=== PATIENT | female | born 1985 | race Caucasian/White ===

== ENCOUNTER 2016-11-11 02:43 | Inpatient (IN) ==
[~2016-11-11 02:43] MED LIST: Famotidine 20 MG/2 ML VIAL IVP PRN; Metoclopramide 10 MG/2 ML VIAL IVP PRN; Naloxone 0.4 MG/ML INJ IVP PRN
--- NOTE | 2016-11-11 02:43 | OB/GYN History & Physical ---
Date of Encounter: 11/11/16 Time of Encounter: 02:39 Assessment and Plan (1) Spontaneous onset of labor Current visit: Yes Status: Acute labor orders placed, patient does not want epidural, ok for nubain, allow spontaneous labor, will AROM soon, anticipate History of Present Illness HPI: Ms. Henry is a 31 year old female @ 37+2 weeks who presents to L and D in labor 3cm-5cm, no LOF, VB, regular ctxs, GBS neg. Past Med Surg Social Fam HX - Past Medical History Medical history: no medical history Psychiatric history: no psych history - Past Surgical History Surgical History: no surgical history - Social History Smoking Status: Never smoker Smokeless Tobacco Status: No Alcohol use: none Drug use: none - Family History Paternal Grandmother Hx Family Cancer: Yes (ovarian) Obstetrical History - Pregnancies : 2 Para: 1 Term: 1 Livin Medications and Allergies Ferrous Sulfate 324 mg PO DAILY 07/03/15 [History] Dha 1 tab PO DAILY 07/03/15 [History] Allergies No Known Allergies Allergy (Verified 07/03/15 01:58) Review of System OB All systems PM: reviewed and no additional remarkable complaints except as stated Exam - Constitutional Constitutional: well developed - HEENT HEENT: PERRL - Neck Neck exam: normal inspection - Lungs Respiratory exam: CTAB - Cardiovascular Cardiovascular exam: RRR - Abdomen Abdomen: Present: gravid - Extremities Extremities exam: warm - Cervix Dilation: 3 Results All other labs normal. - VTE Reasons for not Prescribing Prophylaxis: Treatment not Indicated - Low risk for VTE
[2016-11-11] MEDS ORDERED: Ringers Solution, Lactated 1,000 ML IVC SCH (02:45)
[2016-11-11 02:55] LABS: Basophils # 0.1 K/mcL (0.0-0.2); Basophils % 0.4 %; Eosinophils # 0.2 K/mcL (0.0-0.6); Eosinophils % 1.2 %; Hematocrit 36.4 % (35.3-44.9); Hemoglobin 11.5 g/dL (11.5-15.4); Immature Granulocytes % 0.6 % (0-4); Immature Platelets 2.1 % (1.1-6.1); Lymphocytes # 2.3 K/mcL (0.6-4.6); Lymphocytes % 19.1 %; Mean Corpuscular HGB Conc 31.6 g/dL (31.6-35.5); Mean Corpuscular Hemoglobin 27.5 pg (28.0-33.3); Mean Corpuscular Volume 87.1 fL (83.0-100.0); Mean Platelet Volume 9.5 fL (9.4-12.4); Monocytes # 0.8 K/mcL (0.0-1.3); Monocytes % 6.9 %; Neutrophils # 8.8 K/mcL (1.6-8.9); Platelet Count 271 K/mcL (140-400); Red Blood Count 4.18 M/mcL (3.82-4.97); Segmented Neutrophils % 71.8 %
[2016-11-11] MEDS ORDERED: *HR* Nalbuphine 20 MG/ML AMPUL IVP PRN (03:27)
[2016-11-11] MEDS ORDERED: *HR* Nalbuphine 20 MG/ML AMPUL ONE (03:36)
--- NOTE | 2016-11-11 04:26 | OB Labor Progress Note ---
Date of Encounter: 11/11/16 Time of Encounter: 04:21 Labor Progress Note - Subjective Subjective: patient continues to make good progress with her ctxs - Vital Signs Vital Signs: VSS - Cervix Cervix: 6cm - Heart Tones Heart Tones: 135/mod gene/+accels, no decels - Sigel Sigel: Q2-4 - Plan Plan: cont labor progress
--- NOTE | 2016-11-11 06:26 | OB Labor Progress Note ---
Date of Encounter: 11/11/16 Time of Encounter: 06:24 Labor Progress Note - Plan Plan: Patient now 8cm, continue monitoring strip, FHT CAT 1, anticipate
[2016-11-11] MEDS ORDERED: *HR* Oxytocin 10 UNIT/ML VIAL IM ONE (08:33)
--- NOTE | 2016-11-11 09:08 | OB/GYN Procedure Note ---
Delivery - Delivery Date: 11/11/16 Provider: Padilla Fisher Intrapartum events: none Delivery induction: none Estimated Blood Loss: 150 - (s) Infant A Infant Delivery Date: 11/11/16 Delivery Time: 08:46 Presentation: vertex Position: EDDIE Gender: Male Viability: Viable Weight Gram: 3.2 kg at 5 mins: 9 at 10 mins: 9 Shoulder Dystocia: not encountered Specimens collected: cord blood Placenta: spontaneous Cord: 3 umbilical vessels - Repair Episiotomy: none Laceration Description: None - Complications Delivery complications: none - Comments Comments: Pt s/p without complications. No laceration . Spontaneous delivery of normal without complications.
[2016-11-11] MEDS ORDERED: Rho Immune Globulin 1,500 UNIT SYRINGE IM PRN (10:37)
[2016-11-11] MEDS ORDERED: Acetaminophen 325 MG TABLET PO PRN (10:37)
[2016-11-11] MEDS ORDERED: Oxytocin 20 units/ LR 1000 mL 20 UNIT/1,000 ML BAG IVC ONE (10:37)
[2016-11-11] MEDS ORDERED: Measles/Mumps/Rubella Vacc 0.5 ML VIAL SQ PRN (10:37)
[2016-11-11] MEDS ORDERED: Oxytocin 20 units/ LR 1000 mL 20 UNIT/1,000 ML BAG IV SCH (10:37)
[2016-11-12 03:23] LABS: Basophils # 0.1 K/mcL (0.0-0.2); Basophils % 0.4 %; Eosinophils # 0.2 K/mcL (0.0-0.6); Eosinophils % 1.5 %; Hematocrit 33.8 % (35.3-44.9); Hemoglobin 10.8 g/dL (11.5-15.4); Immature Granulocytes % 0.6 % (0-4); Lymphocytes # 2.8 K/mcL (0.6-4.6); Lymphocytes % 22.4 %; Mean Corpuscular Hemoglobin 27.8 pg (28.0-33.3); Mean Corpuscular Volume 86.9 fL (83.0-100.0); Mean Platelet Volume 9.2 fL (9.4-12.4); Monocytes % 7.8 %; Neutrophils # 8.5 K/mcL (1.6-8.9); Platelet Count 243 K/mcL (140-400); Red Blood Count 3.89 M/mcL (3.82-4.97); Red Cell Distribution Width 13.1 % (11.5-14.5); Segmented Neutrophils % 67.3 %
[2016-11-12 08:01] VITALS: BP 92/55
--- NOTE | 2016-11-12 08:44 | Discharge Summary ---
Date of Encounter: 11/12/16 Time of Encounter: 08:42 - Discharge Diagnosis (1) Status post normal vaginal delivery Priority: Primary Status: Acute Comments: Meeting post milestones - Discharge Medications Home Medications: Dha 1 tab PO DAILY 07/03/15 [History] Acetaminophen [Tylenol] 650 mg PO Q6HR PRN #0 tablet 11/12/16 [Rx] Docusate [Colace] 100 mg PO BID capsule 11/12/16 [Rx] Allergies/Adverse Reactions: Allergies No Known Allergies Allergy (Verified 07/03/15 01:58) Data Procedures and tests throughout hospitalization: Laboratory Tests 11/11/16 11/12/16 02:35 03:14 WBC 12.2 H 12.6 H RBC 4.18 3.89 Hgb 11.5 10.8 L Hct 36.4 33.8 L MCV 87.1 86.9 MCH 27.5 L 27.8 L MCHC 31.6 32.0 RDW 13.0 13.1 Plt Count 271 243 MPV 9.5 9.2 L Immature Gran % 0.6 0.6 Seg Neutrophils % 71.8 67.3 Lymphocytes % 19.1 22.4 Monocytes % 6.9 7.8 Eosinophils % 1.2 1.5 Basophils % 0.4 0.4 Neutrophils # 8.8 8.5 Lymphocytes # 2.3 2.8 Monocytes # 0.8 1.0 Eosinophils # 0.2 0.2 Basophils # 0.1 0.1 Immature Plt Fraction 2.1 Labs on day of discharge: Labs from last 24 hours 11/12/16 03:14 WBC 12.6 H RBC 3.89 Hgb 10.8 L Hct 33.8 L MCV 86.9 MCH 27.8 L MCHC 32.0 RDW 13.1 Plt Count 243 MPV 9.2 L Immature Gran % 0.6 Seg Neutrophils % 67.3 Lymphocytes % 22.4 Monocytes % 7.8 Eosinophils % 1.5 Basophils % 0.4 Neutrophils # 8.5 Lymphocytes # 2.8 Monocytes # 1.0 Eosinophils # 0.2 Basophils # 0.1 Date of admission: 11/11/16 02:43 Consults: 11/11/16 10:37 Consult to Leather Colorer [CONS] Routine Comment: Vaginal delivery, consult needed Discharging clinician: Melissa Pearson Anticipated date of discharge: 11/12/16 - Patient Status Disposition: Home, Self-Care Condition: Good Functional capacity at discharge: independent ambulation Overall status at discharge: patient is back to baseline - Discharge Instructions Follow Up With: Marshal Ruiz DO [Partnered Physician] - - Diet and Activity Activity: increase activity as tolerated Diet: regular diet Hospital Course Reason for admission: active labor Delivery: Episiotomy: none Laceration: none Other procedures: none complications: none Discharge diagnosis: IUP at term delivered baby: male Hospital course: - Delivery Date: 11/11/16 Provider: Padilla Fisher Intrapartum events: none Delivery induction: none Estimated Blood Loss: 150 - Infant (s) Infant A Infant Delivery Date: 11/11/16 Delivery Time: 08:46 Presentation: vertex Position: EDDIE Gender: Male Viability: Viable Weight Gram: 3.2 kg at 5 mins: 9 at 10 mins: 9 Shoulder Dystocia: not encountered Specimens collected: cord blood Placenta: spontaneous Cord: 3 umbilical vessels - Repair Episiotomy: none Laceration Description: None - Complications Delivery complications: none - Comments Comments: Pt s/p without complications. No laceration . Spontaneous delivery of normal without complications.Uncomplicated course discharge home day# 1 Time Attestation: Total time spent providing and/or coordinating discharge services: Time Spent: Less than 30 minutes Exam - Constitutional Vitals: Temp Pulse Resp BP Pulse Ox 97.8 F 67 16 92/55 97 11/12/16 08:00 11/12/16 08:00 11/12/16 08:00 11/12/16 08:00 11/12/16 08:00 General appearance IM: A&O X 3, pleasant, no acute distress - Respiratory Respiratory exam: Present: CTAB - Cardiovascular Cardiovascular exam IM: Present: RRR, +S1, +S2 - GI/Abdominal GI/Abdominal exam IM: soft - Rectal Rectal exam: deferred - Uterine Tone: Firm - Extremities Exam Extremities exam IM: Present: normal inspection - Neurological Exam Neurological exam: normal gait, oriented X3 - Psychiatric Additional comments: reports good mood.
[2016-11-12] MEDS ORDERED: Prenatal Vit/FA 1 EACH TABLET PO SCH (09:00)
== END 2016-11-12 11:47 | disposition home or self-care (01) | DRG 775 ==
LOC: 1NENULAB → 1NENUOBS 11:05
PROVIDERS: ADMIT Student in an Organized Health Care Education/Training Program; ATTEND Student in an Organized Health Care Education/Training Program

== ENCOUNTER 2017-11-02 20:21 | Inpatient (IN) ==
[2017-11-02 19:07] LABS: Basophils % 0.3 %; Eosinophils # 0.1 K/mcL (0.0-0.6); Eosinophils % 0.7 %; Hematocrit 36.1 % (35.3-44.9); Hemoglobin 11.5 g/dL (11.5-15.4); Immature Granulocytes % 0.5 % (0-4); Lymphocytes # 1.9 K/mcL (0.6-4.6); Lymphocytes % 19.2 %; Mean Corpuscular HGB Conc 31.9 g/dL (31.6-35.5); Mean Corpuscular Hemoglobin 27.6 pg (28.0-33.3); Mean Corpuscular Volume 86.8 fL (83.0-100.0); Mean Platelet Volume 9.3 fL (9.4-12.4); Monocytes # 0.5 K/mcL (0.0-1.3); Monocytes % 5.6 %; Neutrophils # 7.2 K/mcL (1.6-8.9); Platelet Count 275 K/mcL (140-400); Red Blood Count 4.16 M/mcL (3.82-4.97); Red Cell Distribution Width 13.2 % (11.5-14.5); Segmented Neutrophils % 73.7 %
--- NOTE | 2017-11-02 19:12 | OB/GYN History & Physical ---
Date of Encounter: 11/02/17 Time of Encounter: 19:03 Assessment and Plan (1) Uterine contractions during Current visit: Yes Status: Acute Admit to L&D Expectant management Nubain and epidural for pain PRN Peanut ball and frequent position changes GBS unknown - treat with prophylaxis Anticipate vaginal delivery Dr. Akbar aware of POC and agrees History of Present Illness Chief complaint: Contractions HPI: Ms. Henry is a 32 year old at 36+6 weeks GA by LMP who presents with contractions since 0100 this morning. She denies VB, LOF, JAMES, vision changes, RUQ pain. Her course has been uncomplicated thus far. A+ GBS - unknown - accepts prophylaxis Hep B negative Pt declined other labs Past Med Surg Social Fam HX - Past Medical History Medical history: no medical history Psychiatric history: no psych history - Past Surgical History Surgical History: no surgical history - Social History Smoking Status: Never smoker Smokeless Tobacco Status: No Alcohol use: none Drug use: none - Family History Paternal Grandmother Hx Family Cancer: Yes (ovarian) Obstetrical History - Pregnancies : 3 Para: 2 Term: 2 (G1: 07-03-15, , 40+4, Female, [id number]; G2:2--17, , Term, Male, [id number]) : 0 Ab's: 0 Livin Medications and Allergies No Known Home Drugs 11/02/17 [History] 3 Allergy/AdvReac Type Severity Reaction Status Date / Time No Known Allergies Allergy Verified 07/03/15 01:58 Review of System OB All systems PM: reviewed and no additional remarkable complaints except as stated Exam - Constitutional Constitutional: well developed, well nourished, no acute distress, average body habitus - HEENT HEENT: Normocephaly, Mucus Membranes Moist - Neck Neck exam: full ROM - Lungs Respiratory exam: CTAB - Cardiovascular Cardiovascular exam: RRR, +S1, +S2 - Breasts Breast: bilateral: normal - Abdomen Abdomen: Present: bowel sounds normal, gravid, non tender - Extremities Extremities exam: full ROM, pedal edema - Vulva Vulva: bilateral: normal - Vagina Vagina: Present: normal moisture - Cervix Dilation: 5 (per RN) Effacement: 90 (per RN) Station: 0 - Uterus Uterus exam: Present: normal size, normal contour Results Result Diagrams: 11/02/17 18:45 All other labs normal. - VTE Reasons for not Prescribing Prophylaxis: Treatment not Indicated - Low risk for VTE
[~2017-11-02 20:21] MED LIST changes: +*HR* Nalbuphine 20 MG/ML AMPUL IVP PRN; -Metoclopramide 10 MG/2 ML VIAL IVP PRN; +Ondansetron 4 MG/2 ML VIAL IVP PRN; +Penicillin G Potassium 2,500,000 UNIT in 0.9 % Sodium Chloride 100 ML IVPB SCH; +Penicillin G Potassium 5,000,000 UNIT in D5% in Water (Mini-Bag+) 100 ML IVPB ONE; +Penicillin G Potassium 5,000,000 UNIT in D5% in Water 100 ML IVPB ONE; +Ringers Solution, Lactated 1,000 ML IVC SCH
--- NOTE | 2017-11-02 22:54 | OB Labor Progress Note ---
Date of Encounter: 11/02/17 Time of Encounter: 22:51 Labor Progress Note - Subjective Subjective: Pt reports pain is well controlled with nubain. States she is feeling lots of pressure but would like to wait to push. - Cervix Cervix: 9.5(anterior lip)/100/+2 - Heart Tones Heart Tones: Baseline 125 Moderate variability Accelerations present 15 x 15 No decelerations FHR Category I - [place]: contractions every 2-4 minutes and palpating strong - Plan Plan: Continue expectant management Continue GBS prophylaxis Anticipate vaginal delivery Dr. Akbar aware of POC and agrees
[2017-11-02] MEDS ORDERED: Oxytocin 20 units/ LR 1000 mL 20 UNIT/1,000 ML BAG IVC ONE (23:46)
--- NOTE | 2017-11-03 00:29 | OB/GYN Procedure Note ---
Delivery - Delivery Date: 11/03/17 Provider: Maribel Lea (SANDRA) Intrapartum events: none Delivery induction: none Delivery augmentation: rupture of membranes Delivery monitor: external FHT, external uterine Anesthesia: none Estimated Blood Loss: 200 - Infant (s) Infant A Infant Delivery Date: 11/03/17 Infant Delivery Time: 00:06 Presentation: vertex Position: BENITA Route of delivery: Gender: Female Viability: Viable Pounds: 7 Ounces: 5 Weight Gram: 3.305 kg at 1 minute: 8 at 5 mins: 9 Shoulder Dystocia: not encountered Placenta: spontaneous Cord: 3 umbilical vessels - Repair Episiotomy: none Laceration Description: None - Complications Delivery complications: none Delivery comments: This is a 32 year old G3 now P2 who was admitted for labor at 5cm. She progressed spontaneously to the second stage of labor. She pushed for 5 minutes and delivered a viable female , BENITA over an intact perineum. The infant was placed on mother's abdomen where mouth and nares were bulb suctioned. A nuchal cord was not identified. scores were 8 and 9. The placenta delivered spontaneously, intact, with a 3-vessel cord. Inspection revealed no perineal, sidewal, or cervical lacerations. EBL 200 mL. Placenta and umbilical artery gases were not sent. There were no complications during the procedure. Mom and baby [id number] following delivery. Agree with above Luis Akbar note I was present for the deliver of this patient and participated in her delivery with Maribel Lea CNM, patient had a without any complications or lacerations, placenta delivered spontaneously without any complications and EBL was 200cc. Delivery was uncompliated - Disposition Mom disposition: stable in LDR disposition: stable in LDR
[2017-11-03] MEDS ORDERED: Acetaminophen 325 MG TABLET PO PRN (02:20)
[2017-11-03] MEDS ORDERED: Oxytocin 20 units/ LR 1000 mL 20 UNIT/1,000 ML BAG IVC SCH (02:20)
[2017-11-03] MEDS ORDERED: Measles/Mumps/Rubella Vacc 0.5 ML VIAL SQ PRN (02:20)
[2017-11-03] MEDS: Ibuprofen 600 MG TABLET PO PRN ×2 (02:49→12:22)
--- NOTE | 2017-11-03 08:58 | Discharge Summary ---
Date of Encounter: 11/03/17 Time of Encounter: 08:56 - Discharge Diagnosis (1) Vaginal delivery Priority: Primary Status: Acute Comments: Patient doing well s/p vaginal delivery day 1 Pain well controlled Passing flatus; tolerating regular diet Lochia moderate and without clots Voiding without difficulty Breast feeding well VSS Discharge to guest prior to midnight. (2) Mother currently breast-feeding Priority: Secondary Status: Acute - Discharge Medications Home Medications: Acetaminophen [Tylenol] 650 mg PO Q6HR PRN tablet 11/03/17 [Rx] Docusate [Colace] 100 mg PO BID capsule 11/03/17 [Rx] Ibuprofen [Motrin] 600 mg PO Q6HR PRN tablet 11/03/17 [Rx] Vit/FA 1 each PO DAILY tablet 11/03/17 [Rx] Allergies/Adverse Reactions: 3 Allergy/AdvReac Type Severity Reaction Status Date / Time No Known Allergies Allergy Verified 07/03/15 01:58 Data Procedures and tests throughout hospitalization: Laboratory Tests 11/02/17 18:45 WBC 9.7 RBC 4.16 Hgb 11.5 Hct 36.1 MCV 86.8 MCH 27.6 L MCHC 31.9 RDW 13.2 Plt Count 275 MPV 9.3 L Immature Gran % 0.5 Seg Neutrophils % 73.7 Lymphocytes % 19.2 Monocytes % 5.6 Eosinophils % 0.7 Basophils % 0.3 Neutrophils # 7.2 Lymphocytes # 1.9 Monocytes # 0.5 Eosinophils # 0.1 Basophils # 0.0 Labs on day of discharge: Labs from last 24 hours 11/02/17 18:45 WBC 9.7 RBC 4.16 Hgb 11.5 Hct 36.1 MCV 86.8 MCH 27.6 L MCHC 31.9 RDW 13.2 Plt Count 275 MPV 9.3 L Immature Gran % 0.5 Seg Neutrophils % 73.7 Lymphocytes % 19.2 Monocytes % 5.6 Eosinophils % 0.7 Basophils % 0.3 Neutrophils # 7.2 Lymphocytes # 1.9 Monocytes # 0.5 Eosinophils # 0.1 Basophils # 0.0 Date of admission: 11/02/17 20:21 Consults: 11/03/17 02:20 Consult to [facility] [CONS] Routine Comment: Vaginal delivery, consult needed Discharging clinician: Maribel Carlin Anticipated date of discharge: 11/03/17 - Patient Status Disposition: Home, Self-Care Condition: Good Functional capacity at discharge: independent ambulation Overall status at discharge: patient is back to baseline - Discharge Instructions Follow Up With: Marshal Ruiz DO [Partnered Physician] - - Diet and Activity Activity: increase activity as tolerated Diet: regular diet Hospital Course Reason for admission: active labor, IUP at term Delivery: Episiotomy: none Laceration: none Other procedures: none complications: none Discharge diagnosis: IUP at term delivered [place] baby: female Time Attestation: Total time spent providing and/or coordinating discharge services: Time Spent: Less than 30 minutes Exam - Constitutional Vitals: Temp Pulse Resp BP Pulse Ox 98.2 F 78 12 100/63 97 11/03/17 08:25 11/03/17 08:25 11/03/17 08:25 11/03/17 08:25 11/03/17 08:25 General appearance IM: cooperative, A&O X 3, pleasant - Respiratory Respiratory exam: Present: CTAB - Cardiovascular Cardiovascular exam IM: Present: RRR, +S1, +S2 - GI/Abdominal GI/Abdominal exam IM: normal bowel sounds, soft - Rectal Rectal exam: deferred - Uterine Tone: Firm Uterus Position: 1 Finger Below Umbilicus, Midline - Extremities Exam Extremities exam IM: Present: normal capillary refill, normal inspection, radial pulses palpable and symmetrical - Neurological Exam Neurological exam: alert, oriented X3
[2017-11-03] MEDS ORDERED: Prenatal Vit/FA 1 EACH TABLET PO SCH (09:00)
[2017-11-03 20:10] VITALS: BP 106/70
== END 2017-11-03 23:25 | disposition home or self-care (01) | DRG 775 ==
LOC: 1NENULAB → 1NENUOBS 11-03 02:00
PROVIDERS: ADMIT Obstetrics & Gynecology; ATTEND Obstetrics & Gynecology

== ENCOUNTER → 2019-08-22 23:00 | Observation (INO) ==
[2019-08-22 20:09] LABS: Bilirubin,Urine Negative (Negative); Blood,Urine Negative (Negative); Clarity,Urine Cloudy (Clear); Color,Urine Yellow (Yellow); Glucose,Urine (UA) Normal (Normal); Ketones,Urine Negative (Negative); Leukocyte Esterase,Urine Small (Negative); Nitrite,Urine Negative (Negative); Protein,Urine Negative (Neg-Trace); Specific Gravity,Urine 1.021 (1.010-1.025); Urobilinogen,Urine Normal (Normal)
[2019-08-22 20:11] LABS: Bacteria,Urine None Seen per hpf (None-Few); Hyaline Casts,Urine None Seen per lpf (None-Few); Squamous Epithelial Cell,Urine Many per lpf (None-Few)
[2019-08-22 20:18] LABS: Amphetamine Screen,Urine Negative ng/mL (Cutoff=1000); Barbiturate Screen,Urine Negative ng/mL (Cutoff=200); Benzodiazepines Screen,Urine Negative ng/mL (Cutoff=200); Cannabinoid Screen,Urine Negative ng/mL (Cutoff = 50); Cocaine Screen,Urine Negative ng/mL (Cutoff= 300); Opiate Screen,Urine Negative ng/mL (Cutoff=300); Phencyclidine Screen,Urine Negative ng/mL (Cutoff=25)
== END | disposition home or self-care (01) ==
LOC: 1NENULAB
PROVIDERS: ADMIT Registered Nurse; ATTEND Registered Nurse

== ENCOUNTER 2019-09-22 19:39 | Inpatient (IN) ==
[~2019-09-22 19:39] MED LIST changes: -*HR* Nalbuphine 20 MG/ML AMPUL IVP PRN; +Metoclopramide 10 MG/2 ML VIAL IVP PRN; -Penicillin G Potassium 2,500,000 UNIT in 0.9 % Sodium Chloride 100 ML IVPB SCH; -Penicillin G Potassium 5,000,000 UNIT in D5% in Water (Mini-Bag+) 100 ML IVPB ONE; -Penicillin G Potassium 5,000,000 UNIT in D5% in Water 100 ML IVPB ONE; -Ringers Solution, Lactated 1,000 ML IVC SCH
[2019-09-22] MEDS ORDERED: Ringers Solution, Lactated 1,000 ML IVC SCH (19:45)
[2019-09-22 20:01] LABS: Basophils # 0.1 K/mcL (0.0-0.2); Basophils % 0.5 %; Eosinophils # 0.1 K/mcL (0.0-0.6); Hematocrit 36.1 % (35.3-44.9); Hemoglobin 12.1 g/dL (11.5-15.4); Immature Granulocytes % 0.5 % (0-4); Lymphocytes # 1.5 K/mcL (0.6-4.6); Lymphocytes % 14.4 %; Mean Corpuscular HGB Conc 33.5 g/dL (31.6-35.5); Mean Corpuscular Hemoglobin 28.6 pg (28.0-33.3); Mean Corpuscular Volume 85.3 fL (83.0-100.0); Mean Platelet Volume 10.3 fL (9.4-12.4); Monocytes # 0.6 K/mcL (0.0-1.3); Monocytes % 5.3 %; Neutrophils # 8.4 K/mcL (1.6-8.9); Platelet Count 204 K/mcL (140-400); Red Blood Count 4.23 M/mcL (3.82-4.97); Red Cell Distribution Width 13.5 % (11.5-14.5); Segmented Neutrophils % 78.3 %; White Blood Count 10.7 K/mcL (4.3-11.1)
[2019-09-22] MEDS ORDERED: *HR* Nalbuphine 10 MG/ML AMPUL IV STA (21:15)
[2019-09-22] MEDS ORDERED: Oxytocin 20 units/ LR 1000 mL 20 UNIT/1,000 ML BAG IVC ONE (21:54)
[2019-09-23] MEDS ORDERED: Oxytocin 20 units/ LR 1000 mL 20 UNIT/1,000 ML BAG IVC SCH (02:41)
[2019-09-23] MEDS ORDERED: Ibuprofen 600 MG TABLET PO PRN (02:41)
[2019-09-23] MEDS ORDERED: Benzocaine/Menthol 56 GM AEROSOL SPRAY TP PRN (02:41)
[2019-09-23] MEDS ORDERED: Lanolin 7 G OINT...G. TP PRN (02:41)
[2019-09-23] MEDS ORDERED: Acetaminophen 325 MG TABLET PO PRN (02:41)
[2019-09-23] MEDS ORDERED: Prenatal Vit/FA 1 EACH TABLET PO SCH (09:00)
[2019-09-23 09:47] VITALS: BP 98/68
== END 2019-09-23 15:01 | disposition home or self-care (01) | DRG 807 ==
LOC: 1NENULAB → 1NENUOBS 09-23 02:14
PROVIDERS: ADMIT Registered Nurse; ATTEND Registered Nurse

== ENCOUNTER 2022-03-17 03:11 | Inpatient (IN) ==
[~2022-03-17 03:11] MED LIST changes: +*HR* Nalbuphine 10 MG/ML AMPUL IV PRN; -Ondansetron 4 MG/2 ML VIAL IVP PRN
[2022-03-17] MEDS ORDERED: Ringers Solution, Lactated 1,000 ML IVC SCH (03:15)
[2022-03-17] MEDS ORDERED: Oxytocin 30 UNIT/503 ML BAG IVC ONE (03:31)
[2022-03-17 03:36] LABS: Basophils % 0.4 %; Eosinophils # 0.1 K/mcL (0.0-0.6); Eosinophils % 1.4 %; Hematocrit 36.5 % (35.3-44.9); Hemoglobin 11.8 g/dL (11.5-15.4); Immature Granulocytes % 0.4 % (0-4); Lymphocytes # 1.8 K/mcL (0.6-4.6); Lymphocytes % 22.4 %; Mean Corpuscular HGB Conc 32.3 g/dL (31.6-35.5); Mean Corpuscular Hemoglobin 27.5 pg (28.0-33.3); Mean Corpuscular Volume 85.1 fL (83.0-100.0); Mean Platelet Volume 9.9 fL (9.4-12.4); Monocytes # 0.5 K/mcL (0.0-1.3); Monocytes % 6.7 %; Neutrophils # 5.5 K/mcL (1.6-8.9); Platelet Count 260 K/mcL (140-400); Red Blood Count 4.29 M/mcL (3.82-4.97); Red Cell Distribution Width 14.2 % (11.5-14.5); Segmented Neutrophils % 68.7 %; White Blood Count 7.9 K/mcL (4.3-11.1)
[2022-03-17 03:44] LABS: Amphetamine Screen,Urine Negative ng/mL (Cutoff=1000); Barbiturate Screen,Urine Negative ng/mL (Cutoff=200); Benzodiazepines Screen,Urine Negative ng/mL (Cutoff=200); Cannabinoid Screen,Urine Negative ng/mL (Cutoff = 50); Cocaine Screen,Urine Negative ng/mL (Cutoff= 300); Opiate Screen,Urine Negative ng/mL (Cutoff=300); Phencyclidine Screen,Urine Negative ng/mL (Cutoff=25)
[2022-03-17] MEDS: Oxytocin 30 UNIT/503 ML BAG IVC SCH ×2 (06:35→09:32)
[2022-03-17] MEDS ORDERED: Ondansetron ODT 4 MG TAB.RAPDIS SL PRN (07:07)
[2022-03-17] MEDS ORDERED: Lanolin 7 G OINT...G. TP PRN (07:07)
[2022-03-17] MEDS ORDERED: Benzocaine/Menthol 56 GM AEROSOL SPRAY TP PRN (07:07)
[2022-03-17] MEDS ORDERED: *HR* OxyCODONE Immed Rel 5 MG TABLET PO PRN (07:07)
[2022-03-17] MEDS: Ibuprofen 600 MG TABLET PO SCH ×2 (08:39→15:14)
[2022-03-17] MEDS: Acetaminophen 325 MG TABLET PO SCH ×2 (08:39→15:30)
[2022-03-17] MEDS ORDERED: Prenatal Vit/FA 1 EACH TABLET PO SCH (09:00)
[2022-03-17 11:41] VITALS: BP 98/66; PULSE 80; TEMP 97.8
== END 2022-03-17 19:42 | disposition home or self-care (01) | DRG 807 ==
LOC: 1NENULAB → 1NENUOBS 09:20
PROVIDERS: ADMIT Obstetrics & Gynecology; ATTEND Obstetrics & Gynecology